=== PATIENT | female | born 1990 ===

== ENCOUNTER 2017-07-29 10:37 | Emergency (ER) | payer OTHER, SELFPAY ==
[2017-07-29 10:54] VITALS: BMI 31.4
[2017-07-29 10:57] VITALS: BP 118/69; PULSE 81; RESP 17; TEMP 99.2; O2SAT 99
--- NOTE | 2017-07-29 13:01 | ED PDOC ---
HPI: Abdomen Time Seen by Provider: 07/29/17 12:30 Chief Complaint (Nursing): Female Genitourinary Chief Complaint (Provider): abdominal pain History Per: Patient History/Exam Limitations: no limitations Onset/Duration Of Symptoms: Days (x1 week) Current Symptoms Are (Timing): Still Present Additional Complaint(s): 26 year old female, approximately 14 weeks , who presents to the emergency department with for an evaluation of lower abdominal pain associated with low back pain when urinating ongoing for 1 week. Denied any fever, chills, nausea, vomiting, difficulty urinating, bloody urine, incontinence, constipation, diarrhea or vaginal bleeding. Patient reported 7/10 pain. LMP: 04/17/17 PMD: none provided Past Medical History Reviewed: Historical Data, Nursing Documentation, Vital Signs Vital Signs: Last Vital Signs Temp 99.2 F 07/29/17 10:55 Pulse 81 07/29/17 10:55 Resp 17 07/29/17 10:55 BP 118/69 07/29/17 10:55 Pulse Ox 99 07/29/17 14:47 - Medical History PMH: No Chronic Diseases - Surgical History Surgical History: Denies: No Surg Hx - Family History Family History: States: Unknown Family Hx - Social History Current smoker - smoking cessation education provided: No Ex-Smoker (has not smoked in the last 12 months): No Alcohol: None Drugs: Denies - Home Medications Home Medications: Ambulatory Orders Medication Instructions Recorded Nitrofurantoin Macrocrystals 100 mg PO BID #14 cap 07/29/17 [Macrobid] Multivit/Folic Acid/I 1 tab PO DAILY #30 tab 07/29/17 [] - Allergies Allergies/Adverse Reactions: Allergies Allergy/AdvReac Type Severity Reaction Status Date / Time No Known Allergies Allergy Verified 07/29/17 11:43 Review of Systems ROS Statement: Except As Marked, All Systems Reviewed And Found Negative Constitutional: Negative for: Fever, Chills Gastrointestinal: Positive for: Abdominal Pain (lower). Negative for: Nausea, Vomiting, Diarrhea, Constipation Genitourinary Female: Negative for: Dysuria, Incontinence, Hematuria, Vaginal Bleeding Musculoskeletal: Positive for: Back Pain (lower) Physical Exam - Reviewed Nursing Documentation Reviewed: Yes Vital Signs Reviewed: Yes - Physical Exam Appears: Positive for: Well, Non-toxic, No Acute Distress Skin: Positive for: Normal Color, Warm, Dry Neck: Positive for: Normal, Supple Cardiovascular/Chest: Positive for: Regular Rate, Rhythm, Chest Non Tender Respiratory: Positive for: Normal Breath Sounds. Negative for: Decreased Breath Sounds, Rhonchi, Wheezing, Respiratory Distress Gastrointestinal/Abdominal: Positive for: Soft, Tenderness (suprapubic mildly). Negative for: Normal Exam, Guarding, Rebound Back: Positive for: Normal Inspection. Negative for: L CVA Tenderness, R CVA Tenderness, Vertebral Tenderness Extremity: Positive for: Normal ROM (lower). Negative for: Tenderness, Pedal Edema (bilateral), Calf Tenderness (bilateral), Swelling Neurologic/Psych: Positive for: Alert (x3), telescope repairer II-XII (intact), Oriented - Laboratory Results Result Diagrams: 07/29/17 13:09 07/29/17 13:09 - ECG O2 Sat by Pulse Oximetry: 99 (RA) Pulse Ox Interpretation: Normal Medical Decision Making Medical Decision Making: Initial Impression: Suprapubic tenderness Initial Plan: * BMP * BETA-HCG * Urine * CBC * US transvaginal ___ Uhcg (+) UA (+) trace leuks, urine cx sent. Labs reviewed and are wnl. Patient sent to US. Time: 1428 --US transvaginal FINDINGS: Transabdominal technique was utilized in evaluation of . UTERUS: A single viable intrauterine gestation is appreciated within anterior/superior developing placenta and no definitive pattern of placental abruption or previa at this time. pole is identified with cardiac rate of 159 beats per minute. No suspicious myometrial lesion is identified. The following biometry was obtained: BPD 2.3 cm corresponds to 13 weeks 6 days. HC 8.64 cm corresponds to 13 weeks 5 days. AC 6.9 cm corresponds to 13 weeks 3 3 over FL 1.0 cm corresponds to 13 weeks 0 days. Average ultrasonic age is 13 weeks 4 days which is generally concordant with menstrual dates. Estimated date of delivery is 01/30/2018. Uterus measures 14.2 x 7.6 x 9.9 cm. Expectantly enlarged but otherwise unremarkable. CERVIX: Long and closed. No cervical abnormality seen. Cervical length is elongated measuring approximately 4.5 cm. RIGHT OVARY: Not identified. No suspicious adnexal mass or fluid collection appreciable. LEFT OVARY: Not identified. No suspicious adnexal mass or fluid collection appreciable. FREE FLUID: None. OTHER FINDINGS: None. IMPRESSION: A single viable intrauterine gestation is identified within average ultrasonic age of 13 weeks 4 days which is generally in agreement with menstrual dates of 14 weeks 5 days as discussed above. biometry as discussed above. Follow- up ultrasound can be utilized for anatomical survey or as otherwise may be clinically required. No definite decidual hemorrhage appreciable. US results d/w the patient in great detail. On reevaluation, patient is resting comfortably in bed in no acute distress. Patient reports no nausea, abdominal pain or vaginal bleeding at this time. On exam, abdomen remains soft with no tenderness, no guarding, no rebound, no CVA tenderness. Based on history, exam and diagnostic results plan will be for outpatient follow -up at the clinic. Diagnosis of UTI and discussed with the patient in great detail. Advised to start taking vitamins. Follow up with the clinic in 1-2 days without fail. Advised to take medication as prescribed. Return to the emergency room at any time for any new or worsening symptoms. Patient states she fully agrees with and understands discharge instructions. States that she agrees with the plan and disposition. Verbalized and repeated discharge instructions and plan. I have given the patient opportunity to ask any additional questions. Scribe Attestation: Documented by Ani Hernandes, acting as a scribe for Acacia Schultz PA-C. Provider Scribe Attestation: All medical record entries made by the Scribe were at my direction and personally dictated by me. I have reviewed the chart and agree that the record accurately reflects my personal performance of the history, physical exam, medical decision making, and the department course for this patient. I have also personally directed, reviewed, and agree with the discharge instructions and disposition. Disposition - Clinical Impression Clinical Impression: Urinary tract infection, , Abdominal pain - Patient ED Disposition Is Patient to be Admitted: No Counseled Patient/Family Regarding: Studies Performed, Diagnosis, Need For Followup, Rx Given - Disposition Referrals: [facility] [Outside] Disposition Time: 14:45 Condition: STABLE Additional Instructions: Thank you for letting us take care of you today. You were treated for UTI, abdominal pain, . The emergency medical care you received today was directed at your acute symptoms. If you were prescribed any medication, please fill it and take as directed. It may take several days for your symptoms to resolve. Return to the Emergency Department if your symptoms worsen, do not improve, or if you have any other problems. Please contact the clinic you have been referred to that are listed on the Patient Visit Information form that is included in your discharge packet. Bring any paperwork you were given at discharge with you along with any medications you are taking to your follow up visit. Our treatment cannot replace ongoing medical care by a primary care provider (PCP) outside of the emergency department. Thank you for allowing the [facility] team to be part of your care today. Prescriptions: Nitrofurantoin Macrocrystals [Macrobid] 100 mg PO BID #14 cap Multivit/Folic Acid/I [] 1 tab PO DAILY #30 tab Instructions: Urinary Tract Infection in Women (ED), at 11 to 14 Weeks (ED) Forms: [employer] ([place]i), [facility] ED School/Work Excuse Print Language: HUNGARIAN
[2017-07-29 13:18] LABS: BASO % 0.3 % (0.0-2.0); EOS # 0.1 K/uL (0.0-0.7); EOS % 0.8 % (0.0-4.0); HEMOGLOBIN 13.5 g/dL (12.0-16.0); LYMPH # 2.4 K/uL (1.0-4.3); LYMPH % 21.5 % (20.0-40.0); MEAN CORPUSCULAR HEMOGLOBIN 29.4 pg (27.0-31.0); MEAN CORPUSCULAR HGB CONC 33.6 g/dL (33.0-37.0); MEAN PLATELET VOLUME 9.9 fl (7.2-11.7); MONO # 0.6 K/uL (0.0-0.8); MONO % 5.6 % (0.0-10.0); NEUT % 71.8 % (50.0-75.0); RBC 4.58 Mil/uL (3.80-5.20); RED CELL DISTRIBUTION WIDTH 13.3 % (11.5-14.5); WHITE BLOOD COUNT 11.1 K/uL (4.8-10.8)
[2017-07-29 13:26] LABS: BLOOD UREA NITROGEN 7 mg/dl (7-17); CALCIUM 9.4 mg/dL (8.4-10.2); GFR AFRICAN-AMERICAN > 60; GFR NON-AFRICAN AMERICAN > 60
[2017-07-29 13:29] LABS: MEAN CELL VOLUME 87.5 fl (81.0-99.0)
--- NOTE | 2017-07-29 14:31 | US ---
PROCEDURE: OB Pelvic Ultrasound HISTORY: , abd pain ; last menstrual period was reported 04/17/2017 corresponding to an estimated gestational age of 14 weeks 5 days. COMPARISON: None available. FINDINGS: Transabdominal technique was utilized in evaluation of . UTERUS: A single viable intrauterine gestation is appreciated within anterior/superior developing placenta and no definitive pattern of placental abruption or previa at this time. pole is identified with cardiac rate of 159 beats per minute. No suspicious myometrial lesion is identified. The following biometry was obtained: BPD 2.3 cm corresponds to 13 weeks 6 days. HC 8.64 cm corresponds to 13 weeks 5 days. AC 6.9 cm corresponds to 13 weeks 3 3 over FL 1.0 cm corresponds to 13 weeks 0 days. Average ultrasonic age is 13 weeks 4 days which is generally concordant with menstrual dates. Estimated date of delivery is 01/30/2018. Uterus measures 14.2 x 7.6 x 9.9 cm. Expectantly enlarged but otherwise unremarkable. CERVIX: Long and closed. No cervical abnormality seen. Cervical length is elongated measuring approximately 4.5 cm. RIGHT OVARY: Not identified. No suspicious adnexal mass or fluid collection appreciable. LEFT OVARY: Not identified. No suspicious adnexal mass or fluid collection appreciable. FREE FLUID: None. OTHER FINDINGS: None. IMPRESSION: A single viable intrauterine gestation is identified within average ultrasonic age of 13 weeks 4 days which is generally in agreement with menstrual dates of 14 weeks 5 days as discussed above. biometry as discussed above. Follow-up ultrasound can be utilized for anatomical survey or as otherwise may be clinically required. No definite decidual hemorrhage appreciable.
== END 2017-07-29 14:58 | disposition home or self-care (01) ==
LOC: H.ER 10:37
DX: O23.42 Unspecified infection of urinary tract in pregnancy, second trimester (principal); Z87.891 Personal history of nicotine dependence

== ENCOUNTER 2018-01-23 07:58 | Inpatient (IN) | payer MEDICAID, SELFPAY ==
[2018-01-23 07:50] VITALS: BMI 34.8
[~2018-01-23 07:58] MED LIST: Lactated Ringer's 1,000 ML IV ONE
[2018-01-23] MEDS ORDERED: Oxytocin 30 units/LR 500ML 30 U/500 ML BAG IV ONE (08:02)
[2018-01-23 08:54] LABS: BASO % 0.2 % (0.0-2.0); EOS # 0.1 K/uL (0.0-0.7); EOS % 1.2 % (0.0-4.0); LYMPH # 2.4 K/uL (1.0-4.3); MEAN CELL VOLUME 87.9 fl (81.0-99.0); MEAN CORPUSCULAR HGB CONC 34.1 g/dL (33.0-37.0); MEAN PLATELET VOLUME 10.3 fl (7.2-11.7); MONO # 0.7 K/uL (0.0-0.8); MONO % 6.2 % (0.0-10.0); NEUT # 8.1 K/uL (1.8-7.0); NEUT % 71.4 % (50.0-75.0); NRBC % 0.1 % (0.0-0.0); RBC 4.34 Mil/uL (3.80-5.20); RED CELL DISTRIBUTION WIDTH 14.4 % (11.5-14.5); WHITE BLOOD COUNT 11.4 K/uL (4.8-10.8)
[2018-01-23] MEDS ORDERED: ePHEDrine 50 mg/ml Inj ONE (09:33)
[2018-01-23] MEDS ORDERED: Morphine 1 mg/ml preservative-free Inj(Duramorph) ONE (09:33)
[2018-01-23] MEDS ORDERED: ceFAZolin IV 2 gm in Dextrose 2 GM/50 ML BAG IVPB ONE (09:54)
[2018-01-23] MEDS ORDERED: Oxycodone/Acetaminophen 5/325 mg Tab PO PRN ×3 (12:54→15:48)
[2018-01-23] MEDS ORDERED: Lactated Ringer's 1,000 ML IV SCH ×2 (13:00→15:48)
[2018-01-23] MEDS ORDERED: Morphine 1 mg/ml preservative-free Inj(Duramorph) EPI ONE (13:06)
[2018-01-23] MEDS ORDERED: Simethicone 80 mg Chewtab PO SCH (16:00)
[2018-01-23] MEDS: Simethicone 80 mg Chewtab PO SCH ×2 (16:38→22:52)
[2018-01-24] MEDS: Simethicone 80 mg Chewtab PO SCH ×4 (04:17→22:36)
[2018-01-24 06:34] LABS: MEAN CELL VOLUME 88.7 fl (81.0-99.0); MEAN CORPUSCULAR HEMOGLOBIN 29.8 pg (27.0-31.0); MEAN CORPUSCULAR HGB CONC 33.6 g/dL (33.0-37.0); RBC 3.68 Mil/uL (3.80-5.20); RED CELL DISTRIBUTION WIDTH 14.2 % (11.5-14.5); WHITE BLOOD COUNT 13.8 K/uL (4.8-10.8)
[2018-01-24] MEDS: Oxycodone/Acetaminophen 5/325 mg Tab PO PRN (08:18)
[2018-01-24] MEDS: Multivitamin With Minerals Tab PO SCH (08:19)
[2018-01-24] MEDS ORDERED: Multivitamin With Minerals Tab PO SCH (09:00)
[2018-01-25] MEDS: Simethicone 80 mg Chewtab PO SCH ×4 (05:38→22:11)
[2018-01-25] MEDS: Multivitamin With Minerals Tab PO SCH (08:07)
[2018-01-25] MEDS: Oxycodone/Acetaminophen 5/325 mg Tab PO PRN (15:01)
--- NOTE | 2018-01-25 22:33 | OBPPN ---
Datetime: 01/25/2018 07:00 PP Pain Prov: Within normal limits PP Nausea Prov: Denies PP Flatus Prov: Yes PP BM Prov: Yes PP Breasts Prov: Not Done PP Heart Prov: Normal PP Lungs Prov: Normal PP Abdomen/Uterus Prov: Normal PP Lochia Prov: Normal PP Vulva/Perineum Prov: Not Done PP CVA Tenderness Prov: Not Done PP Extremities Prov: Normal PP C/S Incision Prov: Normal PP Progress Prov: Normal PP Impression Prov: Normal progression PP Plan Prov: Continue present management PP Progress Note Prov: POD 2 S: 27 yo s/p on 01/23/2018. Pt. is seen and examined at bedside this AM. No over night events. Pt reports mild abdominal pain, but well controlled with pain meds. D/c medrano, dressing removed, incision site healing well, no exudate seen, dry and intact. No nausea, advised to advance diet as tolerated. Breast feeding without difficulty. Lochia is similar to menses volume. Bowel movem ent and passing gas per rectum. Denies fever/chills, diarrhea, nausea/vomiting, chest pain, dyspnea, and dizziness. O: VS: stable GEN: NAD Cardio: S1S2, no murmurs Lungs: clear breath sounds b/l, no wheezing Abdomen: BS+, tenderness to palpation. Incision scar noted, well healing with no exudate seen, dry and intact. Uterus is firm and at the level of the umbilicus. EXT: No edema, calves nontender NEURO/PSYCH: AAOx3, no grossly focal deficits, preserved affect and mood. Assessment/Plan: 27 yo s/p on 01/23/2018. Pt remains afebrile, tolerating pain w ith medication, doing well on POD#2. OOB with caution SCDs for DVT prophylaxis, encouraged ambulating Percocet 5/325mg, and Motrin 600mg for pain. Encourage and ambulating f/u CBC post op, 11.0/32.7 Tdap given Anticipated d/c to home, 01/26/2018. Case dw OB attending --- Eliel Cage MD PGY-2 OB Hospitalist note: On rounds I saw and examiend this patient. Agree with note RAMIRO STREETER PP Procedures: None Vital Signs Provider PP: Reviewed; Within Normal Limits
[2018-01-26] MEDS: Simethicone 80 mg Chewtab PO SCH ×2 (04:06→09:10)
[2018-01-26] MEDS: Multivitamin With Minerals Tab PO SCH (09:10)
--- NOTE | 2018-01-26 10:20 | OBDCSUM ---
Datetime: 01/26/2018 08:02 Discharged to, Provider: Home Follow up at, Provider: [facility] Disch Instr Activity: May be up to bathroom; May be up for meals; May Shower Disch Instr Diet: Regular Discharge Instructions, Provider: Routine instructions given Discharge Diagnosis, Provider: Term Delivered Follow up in weeks, Provider: 1week and 6 weeks Disch Referrals: None Contraception discussed, Prov: Yes Disch Activity Restrictions: No lifting; Minimize stair-climbing; Nothing in vagina - [place], ro allen Discharge Comment, Provider: 1. Continue . 2. Ibuprofen as needed for moderate pain, and percocet for severe pain. No driving or operating he mray machinery while on percocet because of drowsiness. 3. Continue walking as much as tolerated. 4. Please plan follow up visit in 3-7 days with chemical unit operator. 5. Please see your doctor in 6 weeks. 6. No heavy lifting or anything in the vagina for 6 weeks. 7. Please avoid stairs if possible. 8. If you develop severe or worsening pain, please go to the ED. Contraception after Delivery: Control Pill/Patch
--- NOTE | 2018-01-26 10:20 | OBDS ---
DELIVERY PERSONNEL Delivery Doctor: Denilson Duckworth MD Scrub Nurse: Concepcion Talley OBT Steam Shovel Runner: Juan Ross RN/ Marcin Cordero RN Anesthesiologist: Dr Ojeda Resident: Dr Thorpe MATERNAL INFORMATION Delivery Anesthesia: Spinal Medications in Delivery: Pitocin Estimated Blood Loss (ml): 800 Placenta Cultured: No Maternal Complications: None Provider Comments: See Operative Report LABOR SUMMARY EDC: 01/30/2018 00:00 No. Babies in Womb: 1 Attempted: No Labor Anesthesia: None LABOR INFORMATION Reason for Induction: Not Applicable Reason for Induction Other: N/A Other Ripening Agents: N/A Oxytocin: N/A Group B Beta Strep: Negative (Annotations: 01/09/18) Antibiotics # of Doses: 0 Antibiotics Time of Last Dose: N/A Steroids Given: None Reason Steroids Not Administered: Not Applicable Other Reason Not Administered: N/A MEMBRANES Membranes Rupture Method: Artificial Rupture of Membranes: 01/23/2018 12:03 Length of Rupture (hrs): 0.02 Amniotic Fluid Color: Light Meconium Amniotic Fluid Amount: Small Amniotic Fluid Odor: None STAGES OF LABOR Stage 3 hrs: 0 Stage 3 min: 1 CSECTION DELIVERY Primary Indication: Repeat Elective CSection Urgency: Elective CSection Incidence: Primary Labor: No Labor Elective: Elective CSection Incision: Lower Uterine Transverse BABY A INFORMATION Delivery Date/Time: 01/23/2018 12:04 Method of Delivery: Born in Route : No : N/A Forceps: N/A Vacuum Extraction: Successful Shoulder Dystocia : No ASSISTED DELIVERY BABY A Indication for Assisted Delivery: Failed attempt at manual delivery Catheter Prior to Procedure: No Vacuum Number of Pulls: 1 Vacuum Number of PopOffs: 0 Vacuum Dispensing Optician: [employer] Total Time Vacuum Applied: 10 seconds Type of Forceps: N/A SHOULDER DYSTOCIA BABY A Infant Delivery Date/Time: 01/23/2018 12:04 PRESENTATION/POSITION BABY A Presentation: Cephalic Cephalic Presentation: Vertex Breech Presentation: N/A PLACENTA INFORMATION BABY A Placenta Delivery Time : 01/23/2018 12:05 Placenta Method of Delivery: Manual Removal Placenta Status: Delivered SCORES BABY A Heart Rate 1 min: >100 bpm Resp Effort 1 min: Good Cry Reflex Irritability 1 min: Cough or Sneeze or Pulls Away Muscle Tone 1 min: Active Motion Color 1 min: Body Gautier, Extremities Blue Resuscitation Effort 1 min: Tactile Stimulation SCORE 1 MIN: 9 Heart Rate 5 min: >100 bpm Resp Effort 5 min: Good Cry Reflex Irritability 5 min: Cough or Sneeze or Pulls Away Muscle Tone 5 min: Active Motion Color 5 min: Body Gautier, Extremities Blue Resuscitation Effort 5 min: N/A SCORE 5 MIN: 9 INFORMATION BABY A Gestational Age at Delivery: 39.0 Gestational Status: Term Outcome : Liveborn Infant Condition : Stable Sex: Male IDENTIFICATION/MEDS BABY A ID Band Number: [id number] ID Band Location: Left Leg; Left Arm Vitamin K Given : Not Given Erythromycin Given: Not Given WEIGHT/LENGTH BABY A Infant Birthweight (gms): 3360 Infant Weight (lb): 7 Weight (oz): 6 Infant Length Inches: 19.50 Length cms: 49.5 CORD INFORMATION BABY A No. Cord Vessels: 3 Nuchal Cord : N/A Nuchal Cord Other: 0 True Knot: 0 Infant Cord pH Baby Arterial: N/A Infant Cord pH Baby Venous: N/A Cord Blood Taken: Yes Banking/Donate Info: N/A Infant Suction: Mouth; Nose ASSESSMENT BABY A Complications: None Physical Findings at Delivery: Within Normal Limits Respirations: Appears Normal Shrinker/ALS Called : No Care By: Dr Andersen/ Juan Carlos Satnton RN Transferred To: Remains with Mother
--- NOTE | 2018-01-26 10:23 | OBADHP ---
Datetime: 01/23/2018 08:23 Admit Comment, IP Provider: PNP: Dr. Duckworth 27 yo at 39 wks based on LMP: 04/17/2018 is presenting for scheduled repeat . movement appreciated w/i past 5 minutes. Patient denied any vaginal bleeding, contraction or loss of fluid. Patient has no complaints. OBGYNhx: , 2007, M, fetus swallowed meconium PMH: none Famhx: Father-HTN Sochx: no Tobacco, EtOH or drugs Allergies: none Meds: prenatals ROS: denied headache, cp, sob, n/v/d Vitals: BP-107/74 Spo2-100% Pulse 87 PE: Gen: well appearing female in no acute distress Cardio: s1s2 no murmurs Resp: clear b/l Abd: BS+ FHR: 140 baseline, reg with moderate variability TOCO: occasional Ext: calves nontender A/P: 27 yo at 39 wks is presenting for scheduled repeat . 1. Scheduled repeat : admit to unit, protocol initiated. Case discussed with attending Katie Burgos PGY-1 Patient seen and examined by me. Agree with above resident note. -Dr. Duckworth Abdomen - PN: Normal Lungs - PN: Normal Heart - PN: Normal General - PN: Normal FHR - Baseline A Provider: 140 Gestation - Est Wks by US: 39.0 IP Hx Assessment: The History has been Reviewed and is Current Vital Signs Provider: Reviewed; Within Normal Limits IP Chief Complaint: Scheduled Section NICHD Accel Fetus A IP Provider: [id number] NICHD Decel Fetus A IP Provider: None IP Adm Impression: Term, intrauterine IP Admit Plan: Admit to unit; Initiate Section protocol
--- NOTE | 2018-01-26 10:26 | OBPPN ---
Datetime: 01/26/2018 08:12 PP Pain Prov: Within normal limits PP Nausea Prov: Denies PP Flatus Prov: No PP BM Prov: No PP Heart Prov: Normal PP Lungs Prov: Normal PP Abdomen/Uterus Prov: Normal PP Lochia Prov: Normal PP Extremities Prov: Normal PP C/S Incision Prov: Normal PP Progress Prov: Normal PP Impression Prov: Normal progression PP Plan Prov: Continue present management PP Progress Note Prov: S: Pt is a 27 yo 39wks s/p C section on 01/23/18 POD 3. Seen and exami west at bedside this am. Patient denies any significant overnight events. Reports mild pelvic crampin g which is controlled with pain medicine. OOB/Ambulation well without dizziness. Breast/Bottle feedin g without difficulty. Tolerating regular diet. Lochia is similar to menses. Voiding freely with no bl ood noted, denies having a bowel movement, not passing gas per rectum. Denies fever/chills, diarrhea, nausea/vomiting, CP/SOB , Lightheadedness, Calf pain. O: BP:134/74, HR:85, T:98.9F, RR: 20 CBC-11.0/32.7, blood type: O+, rubella: Immune PHYSICAL EXAM: GEN: AAOx3, Resting comfortably in bed, NAD HEENT: NCAT, White sclera, pink conjunctiva, oral mucosa moist. LUNGS: CTA B/L, no wheezing, rhonchi, or rales, B/L chest rise CVS: RRR, S1, S2, No murmurs, rubs, gallops ABD: ND, +BS, firm fundus @ umbilical level. Soft, appropriate TTP, Incision- clean, dry, intact EXT: no edema, negative Lissette's sign, calves nontender NEURO/Psych: no gross focal deficit, preserved affect and mood. A/P 27 y/o 39 wks post op, had a C section on 01/23/18 @ 12:04am Pt afebrile, tolerating pain w ith medication, tolerating regular diet, adequate urine output. -Encourage and ambulation -Ibuprofen 600mg mild pain -Percocet 5/325mg 1 tab Q 6hours prn moderate to severe pain -PNV 1 tab po daily -Colace and [id number] PO HS for constipation -Simethicone for flatulence -Post op contraception-OCP's -F/U 1 wk for wound check, 4-6 weeks for post- visit. Maya Mills M.D. PGY-1 Patient was seen and examined with Dr. Karimi Patient seen and examined by me this am. Agree with above note. Patient for discharge home today a nd to rtc in 1 wk for incision check. Vital Signs Provider PP: Reviewed
[2018-01-26 16:56] VITALS: BP 133/77; PULSE 87; RESP 16; TEMP 97.7; O2SAT 99
--- NOTE | 2018-01-26 21:37 | OP ---
PROCEDURE DATE: 01/23/2018 PREOPERATIVE DIAGNOSIS: Term with previous section, declined vaginal after a caesarean section. POSTOPERATIVE DIAGNOSIS: Term with previous section, declined vaginal after a caesarean section, delivered. PROCEDURE DONE: Repeat low-transverse section. SURGEON: Mallorie Bower MD VP CORPORATE PARTNERSHIPS: Dr. Ezequiel Srinivasan and PGY2. ESTIMATED BLOOD LOSS: 800 mL. INTRAVENOUS FLUID: 1300 mL of lactated Ringer's. URINE OUTPUT: 250 mL clear at the end of procedure. COMPLICATIONS: None. CLOSURE: Subcuticular. FINDINGS: A live male with Apgars of 9 and 9, weight 3360 gm, delivered in vertex presentation, light meconium fluid. PATHOLOGY: None. DESCRIPTION OF PROCEDURE: The patient was taken to the operating room and given spinal anesthesia without difficulty. She was then prepped and draped in a normal sterile fashion in dorsal supine position with a leftward tilt. A Pfannenstiel skin incision was then made with a scalpel after removing the previous keloid scar. This was carried to the underlying fascia with the Bovie. The fascia was then incised in the midline and the incision was extended laterally using the Bovie. The inferior aspect of fascial incision was gasped with Ghazal clamps, elevated, and the underlying rectus muscles were dissected off sharply with Bovie, then bluntly. Attention was then turned to the superior aspect of the fascial incision, which in a similar fashion was dissected off with the Bovie, then bluntly. The rectus muscles were then meticulously in the midline. The peritoneum was identified, tented up, and entered with Metzenbaum scissors. This incision was then extended superiorly, laterally, and inferiorly paying close attention to the bladder. The bladder blade was inserted. The vesicouterine peritoneum was identified, tented up, and entered up with Metzenbaum scissors. This was extended laterally and the bladder flap was created digitally. The bladder blade was reinserted and the lower uterine segment was identified, and entered in a transverse fashion with a scalpel. This incision was then extended cephalocaudally bluntly and attempts was made to deliver the baby but due to this failed attempt, a vacuum was then applied and was used for assistance for delivery of the baby with no complication. The baby was delivered atraumatically. The nose and mouth were suction on the abdomen. The cord was doubly clamped and cut, and the infant was handed off to the waiting gas load dispatcher. Cord blood was then taken. The placenta was exteriorized manually. The uterus was then exteriorized and cleared of all clots and debris. The uterine incision was then closed with one Vicryl in a running locked fashion and a second layer was then placed, and good hemostasis was noted. The uterus was then returned to the abdomen. The gutters were cleared of all clots and debris. Inspection of the uterine incision again revealed good hemostasis. The peritoneum was then cleaned with 2-0 Vicryl in a running fashion. The fascia was then closed with 0 Vicryl in a running fashion to the midline. The Bovie was used to obtain good hemostasis on the subcutaneous fat. This layer was also closed with a 4 interrupted sutures of 3-0 plain suture. The skin was then closed with 4-0 Monocryl on the Abhilash needle for subcuticular stitch, and this incision was then covered with Steri-Strips and a sterile dressing. The patient tolerated the procedure well. Sponge, lap, and needle counts were correct x4. Ancef 2 gm was given preoperatively. The patient was taken to the recovery room in stable condition. There was no injury to the bladder, bowel, ureter, or baby. Due to the nature of this case, an assistance was requested. My kindergarten teacher assistant, Dr. Ezequiel Srinivasan was present for the entire procedure from the initial incision to the patient's transfer to the recovery room. He assisted by providing good retraction to minimize blood loss and ensure a good hemostasis. He also assisted for entry into the abdomen, closure of the uterus, and closure of all layers of the abdominal wall. The procedure could not be performed without his assistance. Mallorie Bower MD
== END 2018-01-26 12:40 | disposition home or self-care (01) | DRG 371 ==
LOC: H.L&D 07:58 → H.OB/GYN 16:07
PROVIDERS: ADMIT Obstetrics & Gynecology; ATTEND Obstetrics & Gynecology
PROC: 10D00Z1 Extraction of Products of Conception, Low, Open Approach (ICD-10-PCS; principal; 2018-01-23)
PROC: 4A1HXCZ Monitoring of Products of Conception, Cardiac Rate, External Approach (ICD-10-PCS; 2018-01-23)
DX: O34.211 Maternal care for low transverse scar from previous cesarean delivery (principal); N85.8 Other specified noninflammatory disorders of uterus; O77.0 Labor and delivery complicated by meconium in amniotic fluid; O69.81X0 Labor and delivery complicated by cord around neck, without compression, not applicable or unspecified; Z37.0 Single live birth; Z3A.39 39 weeks gestation of pregnancy